=== PATIENT | female | born 1955 | race Caucasian/White ===

== ENCOUNTER 2017-12-20 09:11 | Outpatient (CLI) | payer OTHER | END 2017-12-20 09:12 | disposition home or self-care (01) | LOC: LAB 09:11 | PROVIDERS: ATTEND Podiatrist | DX: B07.0 Plantar wart (principal); L60.0 Ingrowing nail; I70.90 Unspecified atherosclerosis; L72.0 Epidermal cyst; M20.41 Other hammer toe(s) (acquired), right foot; M79.674 Pain in right toe(s); Z79.899 Other long term (current) drug therapy | CPT/HCPCS: 36415; 80061; 81001; 83036; 84550; 85025; 85651 ==